=== PATIENT | male | born 1995 | race Caucasian/White ===

== ENCOUNTER 2018-01-15 22:59 | Emergency (ER) | payer SELFPAY ==
[~2018-01-15] VITALS: Ht 180.3 cm; Wt 70.0 kg
[2018-01-15 23:09] VITALS: BP 116/67; PULSE 86; RESP 18; TEMP 98.8; O2SAT 98
[2018-01-16 01:00] LABS: BILIRUBIN, URINE NEG (NEG); BLOOD, URINE NEG (NEG); GLUCOSE,URINE NEG (NEG); KETONE, URINE NEG (NEG); MUCUS URINE FEW /lpf (OCC); NITRITE,URINE NEG (NEG); URINE COLOR YELLOW (YELLW/STRAW); URINE LEUKOCYTE ESTERASE NEG (NEG)
--- NOTE | 2018-01-16 01:15 | RADRPT ---
EXAM DATE: 01/16/2018 12:47 AM EDT AGE/SEX: 22 years / Male INDICATIONS: Cough. CLINICAL DATA: This is the patient's initial encounter. Patient reports that signs and symptoms have been present for 1 day and indicates a pain score of 0/10. MEDICAL/SURGICAL HISTORY: None. None. COMPARISON: No prior exams available for comparison. FINDINGS: PA and lateral views of the chest. The lungs are clear. Cardiomediastinal silhouette with in normal limits. No evidence of pleural effusion or pneumothorax. CONCLUSION: No acute cardiopulmonary disease identified. Electronically signed by: Edgard Morel MD 01/16/2018 1:14 AM EDT
[2018-01-16] MEDS ORDERED: GUAI600T11 PO (01:24)
--- NOTE | 2018-01-16 01:24 | PD ---
HPI Chief Complaint: Fever Time Seen by Provider: 00:15 Travel History International Travel<30 days: No Contact w/Intl Traveler<30days: No Traveled to known affect area: No History of Present Illness HPI The patient is a 22 year old male who presents to the [facility] emergency department with a history of reportedly beginning to feel sick yesterday. He reports that it began with a clear rhinorrhea, cough productive of phlegm that appears green at times, chest congestion, sinus pressure over his forehead and cheeks, ear pressure, and a sore throat. The patient reports having a subjective fever. He does not have a thermometer to check his temperature. He reports having body aches and generalized fatigue. He reports having occasional diarrhea. He denies having any abdominal pain or vomiting. On review of systems otherwise, the patient denies having neck pain, chest pain, shortness of breath, urinary frequency, urinary urgency, or neurologic symptoms. The patient does report over the last couple of days having intermittent dysuria. He denies having any penile discharge, testicle pain or swelling, or genital lesions. [facility] Past Medical History Narrative Medical The patient's past medical history is significant for none. Medical History: Denies Significant Hx Diminished Hearing: No Tetanus Vaccination: Unknown Influenza Vaccination: No Past Surgical History Narrative Surgical The patient's past surgical history is significant for right hand ORIF Social History Alcohol Use: No Tobacco Use: Yes Substance Use: No Allergies-Medications (Allergen,Severity, Reaction): Coded Allergies: No Known Allergies (Unverified , 01/15/18) Review of Systems Except as stated in HPI: all other systems reviewed are Neg General / Constitutional: Positive: Fever Eyes: No: Visual changes HENT: Positive: Headaches, Sore Throat, Rhinorrhea, Congestion, No: Neck Stiffness, Neck Pain Cardiovascular: No: Chest Pain or Discomfort Respiratory: Positive: Cough, No: Shortness of Breath Gastrointestinal: No: Abdominal Pain Genitourinary: No: Dysuria Musculoskeletal: No: Pain Skin: No Rash Neurologic: Positive: Weakness (Generalized fatigue and weakness), No: Focal Abnormalities, Change in Mentation, Slurred Speech, Sensory Disturbance Psychiatric: No: Depression Endocrine: No: Polydipsia Hematologic/Lymphatic: No: Easy Bruising Physical Exam Narrative General: The patient is a well-developed well-nourished male in no acute distress. Head and Neck exam: Head is normocephalic atraumatic. Eyes: EOMI, pupils are equal round and reactive to light. Nose: Nose is midline septum with erythematous edematous nasal mucosa and a clear nasal discharge. The patient reports having bilateral maxillary sinus tenderness on palpation. No frontal sinus tenderness on palpation. Mouth: Dentition unremarkable. Moist mucus membranes. Posterior oropharynx is mildly erythematous without exudates or palatal petechiae. No tonsillar hypertrophy. Uvula midline. Airway patent. Neck: No palpable lymphadenopathy. No nuchal rigidity. No thyromegaly. Cardiovascular: Regular rate and rhythm without murmurs, gallops, or rubs. No pulse deficit to the extremities on simultaneous auscultation and palpation of his radial artery. Lungs: Clear to auscultation bilaterally. No wheezes, rhonchi, or rales. Abdomen: Soft, without tenderness to palpation in all 4 quadrants of the abdomen. No guarding, rebound, or rigidity. Normal bowel sounds are audible. No tenderness on palpation of McBurney's point. Extremities: No clubbing, cyanosis, or edema. 2+ pulses in all 4 extremities. No calf tenderness on palpation. Back: No spinous process tenderness to palpation. No costovertebral angle tenderness to palpation. Neurologic Exam: Grossly nonfocal. Skin Exam: No rash noted. Intact skin that is warm and dry. Data Data Last Documented VS Vital Signs Date Time Temp Pulse Resp B/P (MAP) Pulse Ox O2 Delivery O2 Flow Rate FiO2 01/15/18 23:09 98.8 86 18 116/67 (83) 98 Orders Orders Urinalysis - C+S If Indicated (01/16/18 00:26) Chest, Pa & Lat (01/16/18 00:26) Labs Laboratory Tests Test 01/16/18 00:47 Urine Color YELLOW Urine Turbidity CLEAR Urine pH 7.0 Urine Specific [place] 1.018 Urine Protein NEG mg/dL Urine Glucose (UA) NEG mg/dL Urine Ketones NEG mg/dL Urine Occult Blood NEG Urine Nitrite NEG Urine Bilirubin NEG Urine Urobilinogen LESS THAN 2.0 MG/DL Urine Leukocyte Esterase NEG Urine RBC 1 /hpf Urine WBC 1 /hpf Urine Mucus FEW /lpf Microscopic Urinalysis Comment CULT NOT INDICATED MDM Medical Decision Making Medical Screen Exam Complete: Yes Emergency Medical Condition: Yes Medical Record Reviewed: Yes Differential Diagnosis Pneumonia, versus urinary tract infection, versus urethritis, versus sinusitis Narrative Course During the course of the patient's emergency department visit, the patient's history, examination, and differential diagnosis were reviewed with the patient. The patient was placed on a monitor worker with oximetry and frequent blood pressure monitoring. The patient had a urine sent for analysis, and chest x-ray ordered. The patient's laboratory studies were reviewed and remarkable for a urinalysis that is unremarkable. Radiology studies were reviewed and remarkable for Last Impressions Chest X-Ray 01/16/18 0026 Signed Impressions: CONCLUSION: No acute cardiopulmonary disease identified. The patient's symptoms are most consistent with a viral upper respiratory infection associated with sinusitis. The patient was instructed that the symptoms will be followed off on their own by his body producing antibodies to the infection, therefore antibiotic is not recommended for treatment. The patient is instructed on symptom control measures and is given a prescription for Mucinex. He is instructed to take Tylenol as needed for discomfort or fevers as written on the package. The patient is resting comfortably and feels better, is alert and in no distress. The patient's results and examination findings were discussed with the patient. The repeat examination is unremarkable and benign. The history, exam, diagnostic testing, and current condition do not suggest any significant pathology to warrant further testing, continued ED treatment, admission, or surgical evaluation at this point. The vital signs have been stable. The patient does not have uncontrollable pain, intractable vomiting, or other significant symptoms. The patient's condition is stable and appropriate for discharge. The patient will pursue further outpatient evaluation with a primary care physician or other designated or consulting physician as indicated in the discharge instructions. The patient is instructed to report back to the emergency department immediately for reexamination in the mean time if he develops any new or worsening signs or symptoms. The patient expressed understanding and was agreeable with this plan. Diagnosis Primary Impression: Upper respiratory infection Qualified Codes: J06.9 - Acute upper respiratory infection, unspecified Referrals: [facility] 1 week Patient Instructions: General Instructions, Upper Respiratory Infection (ED) Med/Other Pt SpecificInfo: Prescription(s) given Scripts Guaifenesin ER (Mucus Relief ER) 600 Mg Tab 600 MG PO BID Y for CHEST CONGESTION AND/OR COUGH for 5 Days, #10 TAB 0 Refills Prov: Sara Deras MD 01/16/18 Disposition: 01 DISCHARGE HOME Condition: Stable Sara Deras MD Jan 16, 2018 01:24
== END 2018-01-16 01:35 | disposition home or self-care (01) ==
LOC: NEPC 22:59
DX: J06.9 Acute upper respiratory infection, unspecified (principal); Z72.0 Tobacco use
CPT/HCPCS: 71046; 81001; 99284